=== PATIENT | female | born 1975 | race Caucasian/White ===

== ENCOUNTER 2016-06-28 13:06 | Outpatient (CLI) ==
[2012-11-10 02:24] VITALS: TEMP 97.6
[2016-04-25 21:52] VITALS: BMI 41.1
--- NOTE | 2016-06-28 13:45 | DI ---
EXAM: Cervical spine five views HISTORY: Disc degeneration COMPARISON: None TECHNIQUE: 09/22/2008 FINDINGS: Vertebral bodies normal height. No fracture. No anterolisthesis or retrolisthesis. Rev ersal of the normal cervical lordosis. Intervertebral disc spaces maintained. Neural foramen are p atent. Prevertebral soft tissues appear normal. IMPRESSION: Reversal of the normal cervical lordosis. Otherwise normal examination.
== END 2016-06-28 13:07 | disposition home or self-care (01) ==
LOC: RAD 13:06
PROVIDERS: ATTEND Pain Medicine Interventional Pain Medicine
DX: M50.31 Other cervical disc degeneration, high cervical region (principal); M50.321 Other cervical disc degeneration at C4-C5 level; M50.322 Other cervical disc degeneration at C5-C6 level; M50.323 Other cervical disc degeneration at C6-C7 level; M50.33 Other cervical disc degeneration, cervicothoracic region

== ENCOUNTER 2016-07-24 18:45 | Emergency (ER) ==
[2016-07-24 18:45] VITALS: BMI 41.1
[2016-07-24 18:52] VITALS: BP 151/107; TEMP 96.6
--- NOTE | 2016-07-24 19:10 | ED.PDOC ---
General ED Provider: Dr. GLEN HA-ER Chief Complaint: Wrist Pain/Injury Stated Complaint: i pulled on blankets and felt a pop on my wrist Time Seen by Physician: 19:08 Mode of Arrival: Walk-In Information Source: Patient Exam Limitations: No limitations Primary Care Provider: ORTIZ ACOSTA Nursing and Triage Documentation Reviewed and Agree: Yes Musculoskeletal Complaint Exam - Hand/Wrist Complaint/Exam Location of Pain: Reports: Left, Wrist Mechanism of Injury: Reports: No known trauma Onset/Duration: a few hours Symptoms Are: Still present Onset of Pain: Reports: Immediate Initial Severity: Mild Current Severity: Mild Location: Reports: Discrete (left wrist) Character: Reports: Dull, Aching Alleviating: Reports: Elevation Aggravating: Reports: Movement Associated Signs and Symptoms: Denies: Swelling, Redness, Bruising, Fever, Weakness, Numbness, Tingling Related Surgical History: Reports: None Hand/Wrist Findings: Present: Swelling Tenderness: Present: Metacarpal Compartment Syndrome Risk Factors: Present: Pain Differential Diagnoses: Tendonitis Review of Systems - Review Of Systems Constitutional: Reports: No symptoms Eyes: Reports: No symptoms Ears, Nose, Mouth, Throat: Reports: No symptoms Respiratory: Reports: No symptoms Cardiac: Reports: No symptoms GI: Reports: No symptoms : Reports: No symptoms Musculoskeletal: Reports: Joint pain Skin: Reports: No symptoms Neurological: Reports: No symptoms Endocrine: Reports: No symptoms Hematologic/Lymphatic: Reports: No symptoms All Other Systems: Reviewed and Negative Past Medical History - Past Medical History Previously Healthy: Yes Endocrine: Reports: None Cardiovascular: Reports: None Respiratory: Reports: None Hematological: Reports: None Gastrointestinal: Reports: None Genitourinary: Reports: None Neuro/Psych: Reports: None Musculoskeletal: Reports: Arthritis, Back Pain Cancer: Reports: Other Last Menstrual Period: hysterectomy - Surgical History General Surgical History: Reports: Hysterectomy, Cholecystectomy, Tonsillectomy , Adenoidectomy, Other - Family History Family History: Reports: Unknown - Social History Smoking Status: Never smoker Hx Substance Use: No Alcohol Screening: None Lives: With family Physical Exam - Physical Exam Appearance: Well-appearing, No pain distress, Well-nourished Pain Distress: Mild Eyes: JOSS ENT: Ears normal, Nose normal, Oropharynx normal Neck: Supple Respiratory: Airway patent, Breath sounds clear, Breath sounds equal, Respirations nonlabored Cardiovascular: RRR, Pulses normal, No rub, No murmur GI/: Soft, Nontender, No masses, Bowel sounds normal, No Organomegaly Musculoskeletal: Normal strength, ROM intact, No edema, No calf tenderness Skin: Warm Neurological: Sensation intact, Motor intact, Reflexes intact, Cranial nerves intact, Alert, Oriented Psychiatric: Affect appropriate, Mood appropriate Interpretation - Radiology Interpretation Radiology Interpretation By: ED Physician Radiology Results: Negative Critical Care Note - Critical Care Note Total Time (mins): 0 Course - Course Orders, Labs, Meds: Orders Category Date Time Status WRIST, LEFT 3 VIEWS Stat RADS 07/24/16 18:48 Ordered Vital Signs: Temp Pulse Resp BP Pulse Ox 07/24/16 18:45 96.6 F L 71 16 151/107 H 97 Departure - Departure Time of Disposition: 19:10 Disposition: HOME SELF-CARE Discharge Problem: Injury of wrist Instructions: Wrist Injury (ED) Condition: Good Pt referred to PMD for follow-up: Yes Additional Instructions: stay in splint--toradol 10mg qid prn pain #16--heat alt ice--f/u with pcp this week Allergies/Adverse Reactions: Allergies codeine [Codeine] Allergy (Mild, Verified 07/24/16 18:51) Anxiety Home Medications: Ambulatory Orders Doxycycline Monohydrate 100 mg PO DAILY 04/29/15 Hydroxyzine HCl 50 mg PO BEDTIME 07/24/16 Disposition Discussed With: Patient
--- NOTE | 2016-07-25 02:49 | DI ---
EXAM: Left wrist, three views, 07/24/2016 HISTORY: Injury COMPARISON: None. FINDINGS / IMPRESSION: Normal anatomic alignment is maintained. Visualized osseous structures appe ar intact without evidence of fracture or dislocation No acute osseous abnormality of the left wrist.
== END 2016-07-24 19:25 | disposition home or self-care (01) ==
LOC: ED 18:45
DX: S69.92XA Unspecified injury of left wrist, hand and finger(s), initial encounter (principal); M25.532 Pain in left wrist
CPT/HCPCS: 99282; 99283

== ENCOUNTER 2016-09-14 07:21 | Outpatient (CLI) ==
[2012-11-10 02:24] VITALS: TEMP 97.6
[2016-09-14 07:45] LABS: HEMATOCRIT 42.1 % (37.0-47.0); HEMOGLOBIN 13.8 g/dl (12.0-16.0); MEAN CORPUSCULAR HEMOGLOBIN 28.7 pg (27.0-31.0); MEAN CORPUSCULAR HGB CONC 32.8 (31.8-35.4); MEAN CORPUSCULAR VOLUME 87.5 fl (81.0-99.0); RED BLOOD COUNT 4.81 10^6/ul (4.20-5.40); WHITE BLOOD COUNT 8.18 K/ul (4.6-10.2)
[2016-09-14 08:02] LABS: ALBUMIN 3.4 g/dL (3.4-5.0); ALBUMIN/GLOBULIN RATIO 0.89; ANION GAP 10.8; BILIRUBIN,TOTAL 0.24 mg/dL (0.00-1.20); BUN/CREATININE RATIO 20.48; CREATININE 0.83 mg/dL (0.60-1.30); POTASSIUM 3.8 mmol/L (3.5-5.10); TOTAL PROTEIN 7.2 g/dL (6.4-8.2)
--- NOTE | 2016-09-14 08:44 | DI ---
EXAM: Two x-rays of the chest. Comparison: 04/25/2016. Reason for study: Renal neoplasm. FINDINGS: No pneumothorax, pleural effusion, or focal consolidation. The cardiac silhouette is not enlarged. The imaged osseous structures are unremarkable. Impression: No acute cardiopulmonary process.
--- NOTE | 2016-09-14 08:51 | CT ---
Exam: CT imaging of the abdomen and pelvis without intravenous contrast administration. Comparison: 05/15/2015. Reason for study: Renal neoplasm. FINDINGS: Image interpretation is limited by the lack of intravenous contrast administration. The in the partially visualized lung bases. There are no pneumothoraces, pleural effusions, or foca l consolidations. The gallbladder has been removed. The liver, spleen, and left adrenal gland are unremarkable. The right kidney has been removed. The left kidney is unremarkable without hydronephrosis, hydroure ter, or nephrolithiasis. The pancreas is grossly unremarkable. There is no focal small bowel dilatation or transition point. There is a moderate amount of stool s een within the colon. No intra-abdominal free air or pelvic free fluid. No osteoblastic or osteolytic lesions. There is a small only fat containing periumbilical hernia. Mild dextroscoliosis of the lumbar spine. Impression: 1. No imaging evidence of local recurrent or metastatic disease. 2. No acute findings are seen within the abdomen and pelvis.
== END 2016-09-14 07:22 | disposition home or self-care (01) ==
LOC: RAD 07:21
PROVIDERS: ATTEND Urology
DX: C64.9 Malignant neoplasm of unspecified kidney, except renal pelvis (principal)
CPT/HCPCS: 36415; 80053; 85027

== ENCOUNTER 2017-05-31 12:26 | Outpatient (CLI) ==
[2012-11-10 02:24] VITALS: TEMP 97.6
[2017-05-31 13:05] LABS: BASOPHILS # (AUTO) 0.1 K/uL (0-0.2); BASOPHILS % (AUTO) 0.5 % (0.0-3.0); EOSINOPHILS # (AUTO) 0.1 K/ul (0.0-0.7); EOSINOPHILS % (AUTO) 1.2 % (0.0-7.0); HEMATOCRIT 40.3 % (37.0-47.0); HEMOGLOBIN 13.1 g/dl (12.0-16.0); IMMATURE GRANULOCYTE % (AUTO) 0.5 % (0.0-5.0); LYMPHOCYTES # (AUTO) 2.3 K/uL (0.60-3.4); MEAN CORPUSCULAR HEMOGLOBIN 28.9 pg (27.0-31.0); MEAN CORPUSCULAR HGB CONC 32.5 (31.8-35.4); MEAN CORPUSCULAR VOLUME 88.8 fl (81.0-99.0); MONOCYTES # (AUTO) 0.9 K/uL (0.4-2.0); MONOCYTES % (AUTO) 9.1 (0-10); NEUTROPHILS % (AUTO) 63.7; PLATELET COUNT 267 10^3/uL (140-440); RED BLOOD COUNT 4.54 10^6/ul (4.20-5.40); WHITE BLOOD COUNT 9.36 K/ul (4.6-10.2)
[2017-05-31 13:38] LABS: ALBUMIN/GLOBULIN RATIO 0.75; ANION GAP 12.7; BILIRUBIN,TOTAL 0.4 mg/dL (0.00-1.20); BUN/CREATININE RATIO 14.28; CALCIUM 9.4 mg/dL (8.2-10.2); CHOL/HDL RATIO 3.5 (4.5-5.5); CREATININE 0.84 mg/dL (0.60-1.30); POTASSIUM 3.7 mmol/L (3.5-5.10)
== END 2017-05-31 12:27 | disposition home or self-care (01) ==
LOC: LAB 12:26
PROVIDERS: ATTEND Nurse Practitioner Family
DX: Z00.00 Encounter for general adult medical examination without abnormal findings (principal)
CPT/HCPCS: 36415; 80053; 80061; 84443; 85025

== ENCOUNTER 2017-06-06 21:41 | Emergency (ER) ==
[2017-06-06 21:58] VITALS: BP 124/84; TEMP 97.3; BMI 43.0
--- NOTE | 2017-06-06 22:09 | ED.PDOC ---
General ED Provider: Dr. GLEN HA-ER Chief Complaint: Sore Throat Stated Complaint: silvio got a sore throat Time Seen by Physician: 22:07 Mode of Arrival: Walk-In Information Source: Patient Exam Limitations: No limitations Primary Care Provider: ORTIZ ACOSTA Nursing and Triage Documentation Reviewed and Agree: Yes Reviewed sepsis parameters & appropriate labs ordered?: Yes System Inflammatory Response Syndrome: Not Applicable Sepsis Protocol: For patient's 13 years and over: Temp is 96.8 and below OR 101 and greater Pulse >90 BPM Resp >20/minute Acutely Altered Mental Status Are patient's symptoms suggestive of a new infection, such as: -Pneumonia -Skin, Soft Tissue -Endocarditis -UTI -Bone, Joint Infection -Implantable Device -Acute Abdominal Infection -Wound Infection -Meningitis -Blood Stream Catheter Infection -Unknown EENT Complaint Exam - Throat Complaint/Exam Onset/Duration: 24hrs Symptoms Are: Still present Timimg: Constant Initial Severity: Mild Current Severity: Mild Alleviating: Reports: None Associated Signs and Symptoms: Reports: Fever, Nasal congestion. Denies: Dysphagia, Drooling, Foreign body sensation, Chills, Cough, Wheezing, Hoarseness , Sinus discomfort, Difficulty breathing, Lethargy, Irritability, Decreased activity, Vomiting, Diarrhea, Decreased hearing, Ear drainage Related History: Reports: Similar Episode Uvula Midline: Yes Ariadna-tonsillar Fluctuence: No Scarlatinaform Rash Present: No Stridor Present: No Sinus Tenderness Present: No Tonsillar Hypertrophy Present: No Tonsillar Exudate Present: No Ariadna-tonsillar Swelling Present: No Adenopathy Present: Yes Differential Diagnoses: Epiglottitis, Influenza Review of Systems - Review Of Systems Constitutional: Reports: Fever Eyes: Reports: No symptoms Ears, Nose, Mouth, Throat: Reports: Throat pain, Throat swelling Respiratory: Reports: No symptoms Cardiac: Reports: No symptoms GI: Reports: No symptoms : Reports: No symptoms Musculoskeletal: Reports: No symptoms Skin: Reports: No symptoms Neurological: Reports: No symptoms Endocrine: Reports: No symptoms Hematologic/Lymphatic: Reports: No symptoms All Other Systems: Reviewed and Negative Past Medical History - Past Medical History Previously Healthy: Yes Endocrine: Reports: None Cardiovascular: Reports: None Respiratory: Reports: None Hematological: Reports: None Gastrointestinal: Reports: None Genitourinary: Reports: None Neuro/Psych: Reports: None Musculoskeletal: Reports: Arthritis, Back Pain Cancer: Reports: Other Last Menstrual Period: PT HAS HAD A HYSTERECTOMY - Surgical History General Surgical History: Reports: Hysterectomy, Cholecystectomy, Tonsillectomy , Adenoidectomy, Other - Family History Family History: Reports: Unknown - Social History Smoking Status: Never smoker Hx Substance Use: No Alcohol Screening: Occasionally Lives: With family - Immunizations Tetanus Shot up to Date: (UNKNOWN) Physical Exam - Physical Exam Appearance: Well-appearing, No pain distress, Well-nourished Eyes: JOSS, EOMI, Conjunctiva clear ENT: Erythema Neck: Supple Respiratory: Airway patent, Breath sounds clear, Breath sounds equal, Respirations nonlabored Cardiovascular: RRR, Pulses normal, No rub, No murmur GI/: Soft, Nontender, No masses, Bowel sounds normal, No Organomegaly Musculoskeletal: Normal strength, ROM intact, No edema, No calf tenderness Skin: Warm (contact dermatitis rash anterior chest) Neurological: Sensation intact, Motor intact, Reflexes intact, Cranial nerves intact, Alert, Oriented Psychiatric: Affect appropriate Critical Care Note - Critical Care Note Total Time (mins): 0 Course - Course Orders, Labs, Meds: Orders Category Date Time Status FLU A & B RAPID TEST [RAPID FLU A/B] Stat LAB 06/06/17 21:58 Received MOLECULAR GROUP A STREP Stat LAB 06/06/17 21:58 Results STREP SCREEN Stat LAB 06/06/17 21:58 Results Vital Signs: Temp Pulse Resp BP Pulse Ox 06/06/17 21:43 97.3 F L 80 20 124/84 96 Departure - Departure Time of Disposition: 22:09 Disposition: HOME SELF-CARE Discharge Problem: Sore throat symptom Instructions: Pharyngitis (ED) Condition: Good Pt referred to PMD for follow-up: Yes Additional Instructions: zpack--lidex ointment apply bid in a thin layer---f/u with pcp Allergies/Adverse Reactions: Allergies codeine [Codeine] Allergy (Mild, Verified 06/06/17 21:47) Anxiety Home Medications: Ambulatory Orders Doxycycline Monohydrate 100 mg PO DAILY 04/29/15 Hydroxyzine HCl 50 mg PO BEDTIME 07/24/16 Hydrocodone/Acetaminophen [Hydrocodon-Acetaminophn 10-300] 1 each PO Q8H PRN Disposition Discussed With: Patient, Family
== END 2017-06-06 22:22 | disposition home or self-care (01) ==
LOC: ED 21:41
DX: J02.9 Acute pharyngitis, unspecified (principal); R21 Rash and other nonspecific skin eruption
CPT/HCPCS: 87502; 87651; 87880; 99283

== ENCOUNTER 2017-06-14 10:00 | Outpatient (CLI) ==
[2012-11-10 02:24] VITALS: TEMP 97.6
--- NOTE | 2017-06-14 13:23 | MRI ---
EXAM: MRI left hand without contrast. HISTORY: Pain mainly left thumb and fat pad area. No known injury. No left hand surgery reported.. TECHNIQUE: Using a local coil on a high field strength magnet multiplanar multisequence large field of view imaging obtained through the level of the left hand without intravenous or intra-articular ga dolinium contrast. Note this constitutes incomplete MR evaluation of the left wrist.. COMPARISON: Three-view plain film examination left wrist 07/24/2016. FINDINGS: The alignment of the left hand shows some radial subluxation first metacarpal with respect to the trapezium. Extensive joint centered subchondral bone marrow edema/remodeling/cyst formation. Some capsular/ligamentous hypertrophy along with trace effusion and tiny adjacent synovial/ganglion cyst formation. In correlation with plain film radiographs left wrist 07/24/2016 there is joint spac e narrowing over the first carpometacarpal joint. Some mild adjacent muscle strain over the thenar em inence. Focus of intraosseous cyst/ganglion formation along the scaphoid as well with some remodelin g tear. Otherwise no acute fracture. No bone erosions identified over the metacarpal phalangeal joint level or interphalangeal joint level. The exit of the carpal tunnel within normal limit in appearance. No tenosynovitis. No tendon bow stringing. IMPRESSION: Slight radial subluxation first metacarpal with respect to the trapezium. Underlying de generative arthrosis first carpometacarpal joint as described. Some mild adjacent muscle strain over the thenar eminence. No bone erosions or tenosynovitis. Focus of intraosseous cyst/ganglion formation along the scaphoid with some remodeling.
== END 2017-06-14 10:01 | disposition home or self-care (01) ==
LOC: RAD 10:00
PROVIDERS: ATTEND Nurse Practitioner Family
DX: M79.645 Pain in left finger(s) (principal); G89.29 Other chronic pain; Z87.39 Personal history of other diseases of the musculoskeletal system and connective tissue

== ENCOUNTER 2017-10-19 11:39 | Outpatient (CLI) ==
[2012-11-10 02:24] VITALS: TEMP 97.6
--- NOTE | 2017-10-19 13:24 | DI ---
Exam: Two x-rays of the chest. Comparison: 09/14/2016. Reason for exam: Upper respiratory infection. FINDINGS: No pneumothorax, pleural effusion, or focal consolidation. The cardiac silhouette is not enlarged. The imaged osseous structures appear grossly unremarkable without acute fracture. Impression: No acute cardiopulmonary process.
== END 2017-10-19 11:40 | disposition home or self-care (01) ==
LOC: RAD 11:39
PROVIDERS: ATTEND Emergency Medicine
DX: R60.0 Localized edema (principal); J06.9 Acute upper respiratory infection, unspecified; E66.9 Obesity, unspecified; Z90.5 Acquired absence of kidney
CPT/HCPCS: 36415; 80053; 85025

== ENCOUNTER 2017-10-27 13:02 | Outpatient (CLI) ==
[2012-11-10 02:24] VITALS: TEMP 97.6
[2017-10-27] MEDS ORDERED: ALBUTEROL 0.083% NEB NEB STA (13:25)
== END 2017-10-27 13:03 | disposition home or self-care (01) ==
LOC: CAR 13:02
PROVIDERS: ATTEND Emergency Medicine
DX: R06.02 Shortness of breath (principal)

== ENCOUNTER 2018-01-08 09:41 | Outpatient (CLI) ==
[2012-11-10 02:24] VITALS: TEMP 97.6
--- NOTE | 2018-01-08 13:02 | DI ---
EXAM: Radiographs, right knee HISTORY: Right knee pain. COMPARISON: 12/02/2013. TECHNIQUE: Four views. FINDINGS: Bone mineralization is normal. There is no fracture or dislocation. Mild medial compartm ent joint spaces are noted. Posterior marginal osteophyte formation seen off the proximal tibia. No erosions are seen. No focal soft tissue abnormality is detected. Since the prior study, there has b een no significant interval change. IMPRESSION: Stable mild osteoarthritis.
== END 2018-01-08 09:42 | disposition home or self-care (01) ==
LOC: RAD 09:41
PROVIDERS: ATTEND Emergency Medicine
DX: M25.561 Pain in right knee (principal)

== ENCOUNTER 2018-01-15 10:35 | Outpatient (CLI) ==
[2012-11-10 02:24] VITALS: TEMP 97.6
== END 2018-01-15 10:36 | disposition home or self-care (01) ==
LOC: LAB 10:35
PROVIDERS: ATTEND Emergency Medicine
DX: Z20.6 Contact with and (suspected) exposure to human immunodeficiency virus [HIV] (principal); Z20.2 Contact with and (suspected) exposure to infections with a predominantly sexual mode of transmission
CPT/HCPCS: 36415; 81001; 86592; 86632; 87389; 87800

== ENCOUNTER 2018-01-22 21:25 | Emergency (ER) ==
[2018-01-22 21:35] VITALS: BP 138/86; TEMP 98; BMI 39.9
--- NOTE | 2018-01-22 22:11 | ED.PDOC ---
General ED Provider: Dr. LAKEISHA BURGER Chief Complaint: Wrist Pain/Injury Stated Complaint: While walking the dog with leash, it took off, injured left wrist. Time Seen by Physician: 22:09 Mode of Arrival: Walk-In Information Source: Patient Primary Care Provider: LAKEISHA BURGER-[facility] Nursing and Triage Documentation Reviewed and Agree: Yes Does patient meet sepsis criteria?: No If yes, has appropriate treatment been initiated?: No System Inflammatory Response Syndrome: Not Applicable Sepsis Protocol: For patient's 13 years and over: Temp is 96.8 and below OR 101 and greater Pulse >90 BPM Resp >20/minute Acutely Altered Mental Status Are patient's symptoms suggestive of a new infection, such as: -Pneumonia -Skin, Soft Tissue -Endocarditis -UTI -Bone, Joint Infection -Implantable Device -Acute Abdominal Infection -Wound Infection -Meningitis -Blood Stream Catheter Infection -Unknown Musculoskeletal Complaint Exam - Upper Extremity Complaint/Exam Location of Pain: Reports: Left, Forearm, Wrist Mechanism of Injury: Reports: Trauma Symptoms Are: Still present Timing: Constant Episodes Lasting: Minutes Initial Severity: Mild Location: Reports: Discrete Character: Reports: Aching, Throbbing Aggravating: Reports: Movement Alleviating: Reports: None Non-Orthopedic Risk Factors: Reports: None DVT Risk Factors: Reports: None Septic Arthritis Risk Factors: Reports: None Related Surgical History: Reports: None Upper Extremity Findings: Present: Swelling Differential Diagnoses: Strain Review of Systems - Review Of Systems Constitutional: Reports: No symptoms Eyes: Reports: No symptoms Ears, Nose, Mouth, Throat: Reports: No symptoms Respiratory: Reports: No symptoms Cardiac: Reports: No symptoms GI: Reports: No symptoms : Reports: No symptoms Musculoskeletal: Reports: No symptoms Skin: Reports: No symptoms Neurological: Reports: No symptoms Endocrine: Reports: No symptoms Hematologic/Lymphatic: Reports: No symptoms All Other Systems: Reviewed and Negative Past Medical History - Past Medical History Previously Healthy: Yes Endocrine: Reports: None Cardiovascular: Reports: None Respiratory: Reports: None Hematological: Reports: None Gastrointestinal: Reports: None Genitourinary: Reports: None Neuro/Psych: Reports: None Musculoskeletal: Reports: Arthritis, Back Pain Cancer: Reports: Other Last Menstrual Period: 2008 hysterectomy - Surgical History General Surgical History: Reports: Hysterectomy, Cholecystectomy, Tonsillectomy , Adenoidectomy, Other - Family History Family History: Reports: Unknown - Social History Smoking Status: Never smoker Hx Substance Use: No Alcohol Screening: Occasionally - Immunizations Tetanus Shot up to Date: Yes Physical Exam - Physical Exam Appearance: Well-appearing, No pain distress, Well-nourished Eyes: JOSS, EOMI, Conjunctiva clear ENT: Ears normal, Nose normal, Oropharynx normal Respiratory: Airway patent, Breath sounds clear, Breath sounds equal, Respirations nonlabored Cardiovascular: RRR, Pulses normal, No rub, No murmur GI/: Soft, Nontender, No masses, Bowel sounds normal, No Organomegaly Musculoskeletal: ROM intact, No edema, No calf tenderness, Limited ROM (left wrist and left ulv=na tender.) Skin: Warm, Dry, Normal color Neurological: Sensation intact, Motor intact, Reflexes intact, Cranial nerves intact, Alert, Oriented Psychiatric: Affect appropriate, Mood appropriate Interpretation - Radiology Interpretation Radiology Interpretation By: ED Physician Radiology Results: Negative Critical Care Note - Critical Care Note Total Time (mins): 30 Course - Course Orders, Labs, Meds: Orders Category Date Time Status WRIST, LEFT 3 VIEWS Stat RADS 01/22/18 21:38 Taken Vital Signs: Temp Pulse Resp BP Pulse Ox 01/22/18 21:26 98 F 96 H 20 138/86 98 Departure - Departure Time of Disposition: 22:13 Disposition: HOME SELF-CARE Discharge Problem: Pain in wrist Instructions: Wrist Sprain (ED) Condition: Stable Pt referred to PMD for follow-up: Yes IPMP verified?: No Additional Instructions: tylenol prn rest hot pack Allergies/Adverse Reactions: Allergies codeine [Codeine] Allergy (Mild, Verified 06/06/17 21:47) Anxiety Home Medications: Ambulatory Orders Hydrocodone/Acetaminophen [Hydrocodon-Acetaminophn 10-300] 1 each PO Q8H PRN Cephalexin [Keflex] 250 mg PO TID 11/28/17 Disposition Discussed With: Patient
--- NOTE | 2018-01-23 07:46 | DI ---
EXAM: Three views of the left wrist HISTORY: Injury. COMPARISON: Left wrist x-rays 07/24/2016 FINDINGS: There is no cortical irregularity or displaced fracture of the left wrist. There is narrow ing of the radiocarpal joint. Carpal bones and metacarpals are normal. The soft tissues are unremar kable. Joint spaces are maintained. IMPRESSION: 1. No acute abnormality or displaced fracture of the left wrist. 2. Mild radiocarpal joint space narrowing.
== END 2018-01-22 22:25 | disposition home or self-care (01) ==
LOC: ED 21:25
DX: S69.92XA Unspecified injury of left wrist, hand and finger(s), initial encounter (principal); M25.532 Pain in left wrist; X50.1XXA Overexertion from prolonged static or awkward postures, initial encounter
CPT/HCPCS: 99282; 99283

== ENCOUNTER 2018-03-23 17:10 | Emergency (ER) ==
[2018-03-23 19:18] VITALS: BP 163/87; TEMP 98.1; BMI 39.1
--- NOTE | 2018-03-23 21:00 | ED.PDOC ---
General ED Provider: Dr. GLEN HA-ER Chief Complaint: Respiratory Complaint Stated Complaint: silvio got a runny nose and congestion and a cough Time Seen by Physician: 20:58 Mode of Arrival: Walk-In Information Source: Patient Exam Limitations: No limitations Primary Care Provider: LAKEISHA BURGER-[facility] Nursing and Triage Documentation Reviewed and Agree: Yes Does patient meet sepsis criteria?: No System Inflammatory Response Syndrome: Not Applicable Sepsis Protocol: For patient's 13 years and over: Temp is 96.8 and below OR 101 and greater Pulse >90 BPM Resp >20/minute Acutely Altered Mental Status Are patient's symptoms suggestive of a new infection, such as: -Pneumonia -Skin, Soft Tissue -Endocarditis -UTI -Bone, Joint Infection -Implantable Device -Acute Abdominal Infection -Wound Infection -Meningitis -Blood Stream Catheter Infection -Unknown Respiratory Complaint Exam - Respiratory Complaint/Exam Onset/Duration: 12 hrs Symptoms Are: Still present Timing: Constant, Intermittent Initial Severity: Mild Current Severity: Mild Location: Nose, Chest Character: Reports: Non-productive cough Aggravating: Reports: URI Alleviating: Reports: Spontaneous resolution Associated Signs and Symptoms: Reports: URI, Nasal congestion. Denies: Rapid breathing, Dyspnea, Fever, Chills, Chest pain, Pleuritic chest pain, Wheezing, Hemoptysis, Dizziness, Calf pain, Calf swelling, Edema History of Healthcare-Acquired Pneumonia: No Review of Systems - Review Of Systems Constitutional: Reports: No symptoms Eyes: Reports: No symptoms Ears, Nose, Mouth, Throat: Reports: Nose discharge Respiratory: Reports: Cough Cardiac: Reports: No symptoms GI: Reports: No symptoms : Reports: No symptoms Musculoskeletal: Reports: No symptoms Skin: Reports: No symptoms Neurological: Reports: No symptoms Endocrine: Reports: No symptoms Hematologic/Lymphatic: Reports: No symptoms All Other Systems: Reviewed and Negative Past Medical History - Past Medical History Previously Healthy: Yes Endocrine: Reports: None Cardiovascular: Reports: None Respiratory: Reports: None Hematological: Reports: None Gastrointestinal: Reports: None Genitourinary: Reports: None Neuro/Psych: Reports: None Musculoskeletal: Reports: Arthritis, Back Pain Cancer: Reports: Other Last Menstrual Period: hysterectomy - Surgical History General Surgical History: Reports: Hysterectomy, Cholecystectomy, Tonsillectomy , Adenoidectomy, Other - Family History Family History: Reports: Unknown - Social History Smoking Status: Never smoker Hx Substance Use: No Alcohol Screening: Occasionally Physical Exam - Physical Exam Appearance: Well-appearing Eyes: JOSS, EOMI, Conjunctiva clear ENT: Rhinorrhea Neck: Supple Respiratory: Airway patent, Breath sounds clear, Breath sounds equal, Respirations nonlabored Cardiovascular: RRR, Pulses normal, No rub, No murmur GI/: Soft Musculoskeletal: Normal strength, ROM intact, No edema, No calf tenderness Skin: Warm, Dry, Normal color Neurological: Sensation intact Psychiatric: Affect appropriate, Mood appropriate Critical Care Note - Critical Care Note Total Time (mins): 0 Course - Course Vital Signs: Temp Pulse Resp BP Pulse Ox 03/23/18 19:12 98.1 F 70 20 163/87 H 98 Departure - Departure Time of Disposition: 20:59 Disposition: HOME SELF-CARE Discharge Problem: Cough Rhinitis Qualifiers: Rhinitis type: allergic Allergic rhinitis trigger: unspecified Allergic rhinitis seasonality: unspecified Qualified Code(s): J30.9 - Allergic rhinitis, unspecified Instructions: Allergic Rhinitis (ED) Condition: Good Pt referred to PMD for follow-up: Yes IPMP verified?: No Additional Instructions: chacha obregon dose pack=--tessalon perles 200mg tid prn cough 21--f/u with pcp Allergies/Adverse Reactions: Allergies codeine [Codeine] Allergy (Mild, Verified 03/23/18 19:19) Anxiety Home Medications: Ambulatory Orders Hydrocodone/Acetaminophen [Hydrocodon-Acetaminophn 10-300] 1 each PO Q8H PRN Cephalexin [Keflex] 250 mg PO TID 11/28/17 Disposition Discussed With: Patient
== END 2018-03-23 21:06 | disposition home or self-care (01) ==
LOC: ED 19:11
DX: R05 Cough (principal); J30.9 Allergic rhinitis, unspecified
CPT/HCPCS: 99282

== ENCOUNTER 2018-04-21 21:39 | Emergency (ER) | payer OTHER ==
[2018-04-21 21:49] VITALS: BP 129/85; TEMP 97.5; BMI 37.5
--- NOTE | 2018-04-21 22:17 | ED.PDOC ---
General ED Provider: Dr. BORA TRIMBLE Chief Complaint: Sore Throat Stated Complaint: Patient is a 42 year old female who comes to the ER with sore throat and right ear pain for past few days. Brother has similar symptoms. She also complains of right knee pain and swelling. Denies any trauma, thinks she twisted it. Time Seen by Physician: 22:10 Mode of Arrival: Walk-In Information Source: Patient Exam Limitations: No limitations Primary Care Provider: ORTIZ ACOSTA Nursing and Triage Documentation Reviewed and Agree: Yes Does patient meet sepsis criteria?: No System Inflammatory Response Syndrome: Not Applicable Sepsis Protocol: For patient's 13 years and over: Temp is 96.8 and below OR 101 and greater Pulse >90 BPM Resp >20/minute Acutely Altered Mental Status Are patient's symptoms suggestive of a new infection, such as: -Pneumonia -Skin, Soft Tissue -Endocarditis -UTI -Bone, Joint Infection -Implantable Device -Acute Abdominal Infection -Wound Infection -Meningitis -Blood Stream Catheter Infection -Unknown Review of Systems - Review Of Systems Constitutional: Reports: No symptoms Eyes: Reports: No symptoms Ears, Nose, Mouth, Throat: Reports: Ear pain, Throat pain Respiratory: Reports: No symptoms Cardiac: Reports: No symptoms GI: Reports: No symptoms : Reports: No symptoms Musculoskeletal: Reports: Joint pain (right knee swelling and pain ) Skin: Reports: No symptoms Neurological: Reports: Anxiety Endocrine: Reports: No symptoms Hematologic/Lymphatic: Reports: No symptoms All Other Systems: Reviewed and Negative Past Medical History - Past Medical History Previously Healthy: Yes Endocrine: Reports: None Cardiovascular: Reports: None Respiratory: Reports: None Hematological: Reports: None Gastrointestinal: Reports: None Genitourinary: Reports: None Neuro/Psych: Reports: None Musculoskeletal: Reports: Arthritis, Back Pain, Joint Pain Cancer: Reports: Other Last Menstrual Period: 2008 - Surgical History General Surgical History: Reports: Hysterectomy, Cholecystectomy, Tonsillectomy , Adenoidectomy, Other - Family History Family History: Reports: Unknown - Social History Smoking Status: Never smoker Hx Substance Use: No Alcohol Screening: Occasionally - Immunizations Tetanus Shot up to Date: Yes Physical Exam - Physical Exam Appearance: Ill-appearing Ill-appearing: Mild Pain Distress: Mild Eyes: JOSS, EOMI, Conjunctiva clear ENT: Ears normal, Nose normal, Oropharynx normal Neck: Supple Respiratory: Airway patent, Breath sounds clear, Breath sounds equal, Respirations nonlabored Cardiovascular: RRR, Pulses normal, No rub, No murmur GI/: Soft, Nontender, No masses, Bowel sounds normal, No Organomegaly Musculoskeletal: Normal strength, ROM intact, No edema, No calf tenderness Skin: Warm Neurological: Sensation intact Psychiatric: Anxious Critical Care Note - Critical Care Note Total Time (mins): 0 Course - Course Orders, Labs, Meds: Orders Category Date Time Status RAPID STREP SCREEN [MOLECULAR GROUP A STREP] Stat LAB 04/21/18 22:10 Uncollected Vital Signs: Temp Pulse Resp BP Pulse Ox 04/21/18 21:39 97.5 F L 67 18 129/85 98 Departure - Departure Time of Disposition: 22:41 Disposition: HOME SELF-CARE Discharge Problem: Pharyngitis Qualifiers: Pharyngitis/tonsillitis etiology: other specified organisms Qualified Code(s): J02.8 - Acute pharyngitis due to other specified organisms Right knee sprain Qualifiers: Encounter type: initial encounter Involved ligament of knee: unspecified ligament Qualified Code(s): S83.91XA - Sprain of unspecified site of right knee , initial encounter Instructions: Pharyngitis (ED) Condition: Fair Pt referred to PMD for follow-up: Yes IPMP verified?: No Additional Instructions: Take Medications as prescribed Follow up with PCP for MRI of right knee Push fluids and Electrolytes. Allergies/Adverse Reactions: Allergies codeine [Codeine] Allergy (Mild, Verified 04/21/18 21:49) Anxiety Home Medications: Ambulatory Orders Hydrocodone/Acetaminophen [Hydrocodon-Acetaminophn 10-300] 1 each PO Q8H PRN Cephalexin [Keflex] 250 mg PO TID 11/28/17 Disposition Discussed With: Patient
[2018-04-21] MEDS ORDERED: ULTRAM PO STA (22:26)
== END 2018-04-21 22:47 | disposition home or self-care (01) ==
LOC: ED 21:39
DX: J02.9 Acute pharyngitis, unspecified (principal); S83.91XA Sprain of unspecified site of right knee, initial encounter; X50.1XXA Overexertion from prolonged static or awkward postures, initial encounter
CPT/HCPCS: 87651; 99283

== ENCOUNTER 2018-06-10 22:33 | Emergency (ER) ==
[2018-06-10 22:37] VITALS: BP 126/72; TEMP 98.7; BMI 39.3
--- NOTE | 2018-06-10 22:51 | ED.PDOC ---
General ED Provider: Dr. GLEN HA-ER Chief Complaint: Cough Stated Complaint: silvio got cough and congesteion and my ear hurts Time Seen by Physician: 22:49 Mode of Arrival: Walk-In Information Source: Patient Exam Limitations: No limitations Primary Care Provider: ORTIZ ACOSTA Nursing and Triage Documentation Reviewed and Agree: Yes Does patient meet sepsis criteria?: No System Inflammatory Response Syndrome: Not Applicable Sepsis Protocol: For patient's 13 years and over: Temp is 96.8 and below OR 101 and greater Pulse >90 BPM Resp >20/minute Acutely Altered Mental Status Are patient's symptoms suggestive of a new infection, such as: -Pneumonia -Skin, Soft Tissue -Endocarditis -UTI -Bone, Joint Infection -Implantable Device -Acute Abdominal Infection -Wound Infection -Meningitis -Blood Stream Catheter Infection -Unknown Respiratory Complaint Exam - Respiratory Complaint/Exam Onset/Duration: 3 days Symptoms Are: Still present Timing: Constant Initial Severity: Mild Current Severity: Mild Location: Chest Character: Reports: Non-productive cough Aggravating: Reports: URI Alleviating: Reports: None Associated Signs and Symptoms: Reports: URI, Nasal congestion, Sinus discomfort , Sore throat Home Oxygen Use: No Recent Stress Test: No Recent Echo/LV Function: No Current Antibiotic Use: No Current Asthma Medication Use: No Respiratory Distress: None Inadequate Respiratory Effort: No Dysphagia Present: No Stridor Present: No JVD Present: No Accessory Muscle Use: No Retractions: Not Present Diminished Breath Sounds: No Sinus Tenderness: Maxillary Grunting Respirations: No Kussmaul Respirations: No Differential Diagnoses: Sinusitis, URI Review of Systems - Review Of Systems Constitutional: Reports: No symptoms Eyes: Reports: No symptoms Ears, Nose, Mouth, Throat: Reports: Ear pain, Nose discharge Respiratory: Reports: No symptoms Cardiac: Reports: No symptoms GI: Reports: No symptoms : Reports: No symptoms Musculoskeletal: Reports: No symptoms Skin: Reports: No symptoms Neurological: Reports: No symptoms Endocrine: Reports: No symptoms Hematologic/Lymphatic: Reports: No symptoms All Other Systems: Reviewed and Negative Past Medical History - Past Medical History Previously Healthy: Yes Endocrine: Reports: None Cardiovascular: Reports: None Respiratory: Reports: None Hematological: Reports: None Gastrointestinal: Reports: None Genitourinary: Reports: None Neuro/Psych: Reports: None Musculoskeletal: Reports: Arthritis, Back Pain, Joint Pain Cancer: Reports: Other Last Menstrual Period: PT HAS HAD A HYSTERECTOMY - Surgical History General Surgical History: Reports: Hysterectomy, Cholecystectomy, Tonsillectomy , Adenoidectomy, Other - Family History Family History: Reports: Unknown - Social History Smoking Status: Never smoker Hx Substance Use: No Alcohol Screening: None - Immunizations Tetanus Shot up to Date: Yes Physical Exam - Physical Exam Appearance: Well-appearing, No pain distress, Well-nourished Eyes: JOSS, EOMI, Conjunctiva clear ENT: Rhinorrhea Neck: Supple Respiratory: Airway patent Cardiovascular: RRR GI/: Soft, Nontender, No masses, Bowel sounds normal, No Organomegaly Musculoskeletal: Normal strength Skin: Warm Neurological: Sensation intact Psychiatric: Affect appropriate, Mood appropriate Critical Care Note - Critical Care Note Total Time (mins): 0 Course - Course Vital Signs: Temp Pulse Resp BP Pulse Ox 06/10/18 22:33 98.7 F 86 18 126/72 97 Departure - Departure Time of Disposition: 22:51 Disposition: HOME SELF-CARE Discharge Problem: Sinusitis Qualifiers: Sinusitis location: unspecified location Chronicity: acute Recurrence: not specified as recurrent Qualified Code(s): J01.90 - Acute sinusitis, unspecified Instructions: Sinusitis (ED) Condition: Good Pt referred to PMD for follow-up: No IPMP verified?: No Additional Instructions: augmentin 875mg bid x 10 days---medrol dose pack---avoid cig smoke---recheck in 72 hrs if not better Allergies/Adverse Reactions: Allergies codeine [Codeine] Allergy (Mild, Verified 06/10/18 22:37) Anxiety Home Medications: Ambulatory Orders Hydrocodone/Acetaminophen [Hydrocodon-Acetaminophn 10-300] 1 each PO Q8H PRN Cephalexin [Keflex] 250 mg PO TID 11/28/17 Disposition Discussed With: Patient
== END 2018-06-10 23:10 | disposition home or self-care (01) ==
LOC: ED 22:33
DX: J01.90 Acute sinusitis, unspecified (principal)
CPT/HCPCS: 99282

== ENCOUNTER 2018-07-19 10:37 | Outpatient (CLI) ==
[2012-11-10 02:24] VITALS: TEMP 97.6
== END 2018-07-19 10:38 | disposition home or self-care (01) ==
LOC: RHC-LAB 10:37
PROVIDERS: ATTEND Nurse Practitioner Family
DX: R05 Cough (principal); J02.9 Acute pharyngitis, unspecified
CPT/HCPCS: 87502; 87651

== ENCOUNTER 2018-12-04 15:25 | Outpatient (CLI) ==
[2012-11-10 02:24] VITALS: TEMP 97.6
--- NOTE | 2018-12-05 08:33 | DI ---
EXAM: Lumbar spine five views, and including oblique views HISTORY: Pain COMPARISON: 10/23/2017 TECHNIQUE: Five views lumbar spine were performed, including oblique views FINDINGS: For the purposes of this examination, there will be considered five lumbar vertebral bodies with partial lumbarization of S1. Sacroiliac joints intact. Sacral arcuate intact. Mild rightward curvature lumbar spine. Vertebral bodies normal in height. No fracture. Mild multilevel intervert ebral disc space narrowing. Multilevel marginal osteophyte formation. Multilevel facet arthrosis, g reatest in the lower spine. 3 mm anterolisthesis of L4 on L5 and 2 mm anterolisthesis of L5 on S1. IMPRESSION: Chronic discogenic degenerative disease and facet arthrosis.
--- NOTE | 2018-12-05 08:41 | DI ---
EXAM: CERVICAL SPINE, 5 VIEWS HISTORY: Neck pain. FINDINGS: There is subtle reversal of normal cervical lordosis. Vertebral body heights are maintain ed. No degenerative disc or facet disease. Facet joints covered. No scoliosis. Lateral masses of C1 and C2 are normally aligned and the odontoid process is intact. Oblique views reveal no bony enc roachment upon the neural foramina. There is no fracture or soft tissue finding IMPRESSION: 1. Subtle reversal of lordosis. Otherwise unremarkable.
== END 2018-12-04 15:26 | disposition home or self-care (01) ==
LOC: LAB 15:25
PROVIDERS: ATTEND Nurse Practitioner Family
DX: M51.16 Intervertebral disc disorders with radiculopathy, lumbar region (principal); M51.17 Intervertebral disc disorders with radiculopathy, lumbosacral region; M51.36 Other intervertebral disc degeneration, lumbar region; M51.37 Other intervertebral disc degeneration, lumbosacral region; M50.31 Other cervical disc degeneration, high cervical region; M50.321 Other cervical disc degeneration at C4-C5 level; M50.322 Other cervical disc degeneration at C5-C6 level; M50.323 Other cervical disc degeneration at C6-C7 level; M50.33 Other cervical disc degeneration, cervicothoracic region; E66.9 Obesity, unspecified
CPT/HCPCS: 36415; 80053; 80061; 84443; 85025; 93005; 93010

== ENCOUNTER 2019-02-06 22:25 | Emergency (ER) ==
[2019-02-06 22:28] VITALS: BP 120/72; TEMP 98; BMI 38.2
[2019-02-06] MEDS ORDERED: DOXYCYCLINE HYCLATE PO STA (22:38)
--- NOTE | 2019-02-06 22:42 | ED.PDOC ---
General ED Provider: Dr. GLEN HA-ER Chief Complaint: Non-specific Complaint Stated Complaint: silvio got an infected bug bite Time Seen by Physician: 22:40 Mode of Arrival: Walk-In Information Source: Patient Exam Limitations: No limitations Primary Care Provider: ORTIZ ACOSTA Nursing and Triage Documentation Reviewed and Agree: Yes Does patient meet sepsis criteria?: No System Inflammatory Response Syndrome: Not Applicable Sepsis Protocol: For patient's 13 years and over: Temp is 96.8 and below OR 101 and greater Pulse >90 BPM Resp >20/minute Acutely Altered Mental Status Are patient's symptoms suggestive of a new infection, such as: -Pneumonia -Skin, Soft Tissue -Endocarditis -UTI -Bone, Joint Infection -Implantable Device -Acute Abdominal Infection -Wound Infection -Meningitis -Blood Stream Catheter Infection -Unknown Skin Complaint Exam - Skin/Soft Tissue Complaint/Exam Onset/Duration: 2 days Symptoms Are: Still present Timing: Constant Initial Severity: Mild Current Severity: Mild Location: anterior abdomen Character: Reports: Redness, Swelling, Raised Aggravating: Reports: Touch Alleviating: Reports: None Associated Signs and Symptoms: Reports: Red streaks Related History: Reports: Insect bite/sting Recent Exposure to Others w/Similar Symptoms: No Skin Findings: Present: Erythema Joint Tenderness Present: No Differential Diagnoses: Cellulitis Review of Systems - Review Of Systems Constitutional: Reports: No symptoms Eyes: Reports: No symptoms Ears, Nose, Mouth, Throat: Reports: No symptoms Respiratory: Reports: No symptoms Cardiac: Reports: No symptoms GI: Reports: No symptoms : Reports: No symptoms Musculoskeletal: Reports: No symptoms Skin: Reports: Rash Neurological: Reports: No symptoms Endocrine: Reports: No symptoms Hematologic/Lymphatic: Reports: No symptoms All Other Systems: Reviewed and Negative Past Medical History - Past Medical History Previously Healthy: Yes Endocrine: Reports: None Cardiovascular: Reports: None Respiratory: Reports: None Hematological: Reports: None Gastrointestinal: Reports: None Genitourinary: Reports: None Neuro/Psych: Reports: None Musculoskeletal: Reports: Arthritis, Back Pain, Joint Pain Cancer: Reports: Other Last Menstrual Period: none - Surgical History General Surgical History: Reports: Hysterectomy, Cholecystectomy, Tonsillectomy , Adenoidectomy, Other - Family History Family History: Reports: Unknown - Social History Smoking Status: Never smoker Hx Substance Use: No Alcohol Screening: None - Immunizations Tetanus Shot up to Date: Yes Physical Exam - Physical Exam Appearance: Well-appearing, No pain distress, Well-nourished Eyes: JOSS, EOMI, Conjunctiva clear ENT: Ears normal, Nose normal, Oropharynx normal Neck: Supple Respiratory: Airway patent, Breath sounds clear, Breath sounds equal, Respirations nonlabored Cardiovascular: RRR, Pulses normal, No rub, No murmur GI/: Soft, Nontender, No masses, Bowel sounds normal, No Organomegaly Musculoskeletal: Normal strength, ROM intact, No edema, No calf tenderness Skin: Warm, Dry, Normal color Neurological: Sensation intact, Motor intact, Reflexes intact, Cranial nerves intact, Alert, Oriented Psychiatric: Affect appropriate, Mood appropriate Critical Care Note - Critical Care Note Total Time (mins): 0 Course - Course Orders, Labs, Meds: Orders Category Date Time Status Doxycycline Hyclate MEDS 02/06/19 22:38 Stat 100 mg PO ONCE STA Vital Signs: Temp Pulse Resp BP Pulse Ox 02/06/19 22:25 98 F 80 16 120/72 96 Departure - Departure Time of Disposition: 22:41 Disposition: HOME SELF-CARE Discharge Problem: Cellulitis Qualifiers: Site of cellulitis: trunk Site of cellulitis of trunk: abdominal wall Qualified Code(s): L03.311 - Cellulitis of abdominal wall Instructions: Cellulitis (ED) Condition: Good Pt referred to PMD for follow-up: Yes IPMP verified?: No Additional Instructions: f/u with pcp if not improving Allergies/Adverse Reactions: Allergies codeine [Codeine] Allergy (Mild, Verified 02/06/19 22:28) Anxiety codeine Allergy (Mild, Uncoded 02/06/19 22:28) Anxiety Home Medications: Ambulatory Orders Hydrocodone/Acetaminophen [Hydrocodon-Acetaminophn 10-300] 1 each PO Q8H PRN Cephalexin 250 mg PO BID 07/19/18 Azelastine HCl [Astelin 0.1%] 2 spray NS BID #1 spray.pump 12/31/18 Fluticasone Propionate [Flonase] 1 spray FIGUEROA BID #1 btl 12/31/18 Disposition Discussed With: Patient, Family
== END 2019-02-06 22:46 | disposition home or self-care (01) ==
LOC: ED 22:25
DX: L03.311 Cellulitis of abdominal wall (principal); W57.XXXA Bitten or stung by nonvenomous insect and other nonvenomous arthropods, initial encounter
CPT/HCPCS: 99282